=== PATIENT | female | born 1945 | race African-American/Black ===

== ENCOUNTER 2023-06-04 14:31 | Emergency (ER) | payer OTHER ==
[~2023-06-04] VITALS: Ht 160 cm; Wt 113.0 kg
[2023-06-04 14:34] VITALS: O2SAT 98
[2023-06-04 15:48] LABS: BASOPHILS % 0.8 % (0.0-2.0); EOSINOPHILS % 1.3 % (0.0-5.0); HEMATOCRIT. 34.1 % (36.0-48.0); HEMOGLOBIN. 11.6 g/dL (12.0-16.0); MEAN CORPUSCULAR HEMOGLOBIN 29.6 pg (28.0-32.0); MEAN CORPUSCULAR VOLUME 87.1 fL (81.0-99.0); MEAN PLATELET VOLUME 8.3 fl (7.4-10.4); MONOCYTES % 8.5 % (2.0-8.0); NEUTROPHILS % 78.4 % (40.0-76.0); PLATELET 256 x1000/uL (130-400); RED BLOOD CELL COUNT 3.92 mill/uL (4.2-5.4)
[2023-06-04 15:53] LABS: CHLORIDE 103 mEq/L (98-107)
[2023-06-04 18:55] VITALS: BP 137/63; PULSE 97; RESP 18; TEMP 97.9
== END 2023-06-04 19:20 | disposition home or self-care (01) ==
LOC: ER 14:31
DX: M25.561 Pain in right knee (principal); M25.572 Pain in left ankle and joints of left foot; I25.10 Atherosclerotic heart disease of native coronary artery without angina pectoris; E11.9 Type 2 diabetes mellitus without complications; E78.00 Pure hypercholesterolemia, unspecified; I10 Essential (primary) hypertension
CPT/HCPCS: 36415; 71045; 73562; 73610; 80053; 83605; 84484; 85025; 93005; 99285

== ENCOUNTER 2025-08-28 12:34 | Emergency (ER) | payer OTHER ==
[~2025-08-28] VITALS: Ht 162.6 cm; Wt 136.0 kg
[2025-08-28 12:36] VITALS: TEMP 36.6; O2SAT 97
[2025-08-28 15:31] LABS: BASOPHILS % 0.6 % (0.0-2.0); EOSINOPHILS % 1.7 % (0.0-5.0); HEMATOCRIT. 31.9 % (36.0-48.0); HEMOGLOBIN. 10.5 g/dL (12.0-16.0); LYMPHOCYTES % 22.0 % (20.0-50.0); MEAN PLATELET VOLUME 8.9 fl (7.4-10.4); MONOCYTES % 10.3 % (2.0-8.0); NEUTROPHILS % 65.4 % (40.0-76.0); PLATELET 249 x1000/uL (130-400); RED BLOOD CELL COUNT 3.68 mill/uL (4.2-5.4); RED CELL DISTRIBUTION WIDTH 13.0 % (11.6-14.6)
[2025-08-28 15:46] LABS: CREATININE 1.1 mg/dL (0.6-1.0); UREA NITROGEN BLOOD 24 mg/dL (9-23)
[2025-08-28 15:48] LABS: ASPARTATE AMINOTRANSFERASE 24 IU/L (<34); BILIRUBIN DIRECT 0.2 mg/dL (<=3.0); BILIRUBIN TOTAL 0.6 mg/dL (0.1-1.0); PROTEIN TOTAL 6.8 g/dL (6.0-8.3); TROPONIN I HIGH SENSITIVITY 7 ng/L (3.0-34)
[2025-08-28] MEDS: MAGNESIUM 2 G PREMIX 50 ML IV ONE (16:14)
[2025-08-28 17:24] VITALS: BP 155/89; PULSE 67; RESP 16; O2SAT 98
== END 2025-08-28 17:57 | disposition home or self-care (01) ==
LOC: ER 13:00 → CMPBEDREQ 18:40
DX: R53.1 Weakness (principal); R74.8 Abnormal levels of other serum enzymes; E11.9 Type 2 diabetes mellitus without complications; E86.0 Dehydration; R51.9 Headache, unspecified; I10 Essential (primary) hypertension; R06.02 Shortness of breath; Z88.8 Allergy status to other drugs, medicaments and biological substances
CPT/HCPCS: 99285; 96365; 70450; 71045; 80076; 80048; 82550; 83880; 83735; 85025; 84484; 36415; 72170; 93005; J3475

== ENCOUNTER 2025-09-01 08:56 | Emergency (ER) | payer OTHER ==
[~2025-09-01] VITALS: Ht 165.1 cm; Wt 118.0 kg
[2025-09-01 08:58] VITALS: O2SAT 100
[2025-09-01 09:49] LABS: BASOPHILS % 0.6 % (0.0-2.0); EOSINOPHILS % 1.6 % (0.0-5.0); HEMATOCRIT. 30.6 % (36.0-48.0); HEMOGLOBIN. 10.1 g/dL (12.0-16.0); LYMPHOCYTES % 23.0 % (20.0-50.0); MEAN PLATELET VOLUME 8.6 fl (7.4-10.4); MONOCYTES % 10.7 % (2.0-8.0); NEUTROPHILS % 64.1 % (40.0-76.0); PLATELET 223 x1000/uL (130-400); RED BLOOD CELL COUNT 3.54 mill/uL (4.2-5.4); RED CELL DISTRIBUTION WIDTH 12.9 % (11.6-14.6)
[2025-09-01 10:02] LABS: CREATININE 1.2 mg/dL (0.6-1.0)
[2025-09-01 10:03] LABS: TROPONIN I HIGH SENSITIVITY 7 ng/L (3.0-34); UREA NITROGEN BLOOD 26 mg/dL (9-23)
[2025-09-01 11:47] VITALS: BP 151/60; PULSE 93; RESP 19; TEMP 36.8; O2SAT 100
== END 2025-09-01 12:39 | disposition left against medical advice (07) ==
LOC: ER 08:56 → CANBEDREQ 12:13 → ER 12:39
DX: M25.511 Pain in right shoulder (principal); R55 Syncope and collapse; E11.9 Type 2 diabetes mellitus without complications; Z88.8 Allergy status to other drugs, medicaments and biological substances
CPT/HCPCS: 36415; 71045; 73030; 80048; 84484; 85025; 93005; 99285